=== PATIENT | female | born 1965 | race Caucasian/White ===

== ENCOUNTER 2016-09-01 07:43 | Day surgery (SDC) | payer OTHER ==
[2016-09-01] MEDS ORDERED: FENTANYL CITRATE 50 MCG/ML SOL ONE (08:55)
[2016-09-01] MEDS ORDERED: PROPOFOL 500 MG/50 ML EMU IV ONE (08:55)
[2016-09-01 09:56] VITALS: BP 133/93; PULSE 67; RESP 18; TEMP 97.4; O2SAT 97
== END 2016-09-01 10:30 | disposition home or self-care (01) | DRG 951 ==
LOC: SURG 07:43
PROVIDERS: ATTEND Surgery
DX: Z12.11 Encounter for screening for malignant neoplasm of colon (principal); D12.3 Benign neoplasm of transverse colon; K57.30 Diverticulosis of large intestine without perforation or abscess without bleeding
CPT/HCPCS: 99001; J3010; J2704